=== PATIENT | female | born 1955 | race Caucasian/White ===

== ENCOUNTER 2017-04-18 10:16 | Outpatient (CLI) | payer OTHER ==
[~2017-04-18 10:16] MED LIST: SYNTHROID88 MCG PO
== END 2017-04-18 17:00 | disposition home or self-care (01) ==
LOC: RAD 10:16
DX: C20 Malignant neoplasm of rectum (principal)

== ENCOUNTER 2017-05-06 08:30 | Inpatient (IN) | payer OTHER ==
[~2017-05-06] VITALS: Ht 162.6 cm; Wt 63.5 kg
== END 2017-05-13 14:29 | disposition home or self-care (01) | DRG 330 ==
LOC: SURH 05-10 06:11 → O/R 05-10 06:11 → SURG 05-10 07:15 → SURH 05-11 11:54
PROVIDERS: Colon & Rectal Surgery
PROC: 0DQB4ZZ Repair Ileum, Percutaneous Endoscopic Approach (ICD-10-PCS; principal; 2017-05-10 23:00)
DX: C20 Malignant neoplasm of rectum (principal); K91.89 Other postprocedural complications and disorders of digestive system; K56.0 Paralytic ileus; Z43.2 Encounter for attention to ileostomy; E03.8 Other specified hypothyroidism; D50.8 Other iron deficiency anemias

== ENCOUNTER → 2018-01-20 | Day surgery (SDC) | payer OTHER | END | disposition home or self-care (01) | LOC: ADM 01-18 14:45 → AMB-ENDOS 09:05 | DX: C20 Malignant neoplasm of rectum (principal) ==

== ENCOUNTER 2018-08-18 14:23 | Inpatient (IN) | payer OTHER ==
[~2018-08-18] VITALS: Ht 121.9 cm; Wt 5.0 kg
[2018-08-18] MEDS ORDERED: NEURONTIN300 MG PO (14:59)
--- NOTE | 2018-08-18 14:59 | NUR ---
PT CON HX CA RECTAL, REFIERE SANGRADO RECTAL KERR BRILLANTE CON COAGULOS DESDE HOY EN LA MANANA.
--- NOTE | 2018-08-18 23:17 | NUR ---
SE RECIBE PTE ALERTA Y ORIENTADA X 3 ESFERAS, DEL TURNO ANTERIOR, EN YUNG NIVEL MAS BAJO, LEES DE IDENTIFICACION Y BARANDAS ELEVADAS POR PRECAUCION. SE OBSERVA CON BUEN PATRON RESPIRATORIO Y PIEL TIBIA AL TACTO. PTE CON H/L PATENTE Y JABARI DE EDEMA O ERITEMA. PENDIENTE A RE EVALUACION MEDICA.
--- NOTE | 2018-08-19 07:02 | NUR ---
SE RECIBE PTE ALERTA Y ORIENTADA EN LAS 3 ESFERAS EN CAMA CON BARANDAS ELEVADAS POR SEGURIDAD. BUEN PATRON RESPIRATORIO. H/L AREA JABARI DE EDEMA Y ERITEMA. PENDIENTE RE-EVALUACION MEDICA.SE MANTIENE EN OBSERVACION POR CAMBIOS EN CONDICION MEDICA.
== END 2018-08-23 15:49 | disposition home or self-care (01) | DRG 378 ==
LOC: ER 14:23 → SURH 08-19 09:02 → SURG 08-19 09:02 → SURH 08-19 09:57
PROVIDERS: ADMIT Colon & Rectal Surgery
PROC: 30233N1 Transfusion of Nonautologous Red Blood Cells into Peripheral Vein, Percutaneous Approach (ICD-10-PCS; principal; 2018-08-19)
PROC: BW20ZZZ Computerized Tomography (CT Scan) of Abdomen (ICD-10-PCS; 2018-08-20)
DX: K62.5 Hemorrhage of anus and rectum (principal); C20 Malignant neoplasm of rectum; K52.89 Other specified noninfective gastroenteritis and colitis; D70.3 Neutropenia due to infection; I10 Essential (primary) hypertension; E03.8 Other specified hypothyroidism; D50.8 Other iron deficiency anemias; G62.89 Other specified polyneuropathies; Z92.3 Personal history of irradiation; Z92.21 Personal history of antineoplastic chemotherapy; Z93.2 Ileostomy status

== ENCOUNTER 2019-03-12 11:30 | Inpatient (IN) | payer OTHER ==
[~2019-03-12] VITALS: Ht 162.6 cm; Wt 52.2 kg
[~2019-03-12 11:30] MED LIST changes: +NEURONTIN300 MG PO
[2019-03-12] MEDS ORDERED: ACETAMINOPHEN500 M1 PO (13:18)
[2019-03-15] MEDS ORDERED: OXYC1TAB9 PO (18:56)
[2019-03-15] MEDS ORDERED: INTESTINEX680 M1 PO (18:56)
== END 2019-03-15 19:37 | disposition home or self-care (01) | DRG 330 ==
LOC: SURH 16:39 → O/R 03-13 11:30 → ICU 03-14 11:30 → SURH 03-15 19:37
PROVIDERS: ADMIT Colon & Rectal Surgery
PROC: 0D1L4Z4 Bypass Transverse Colon to Cutaneous, Percutaneous Endoscopic Approach (ICD-10-PCS; principal; 2019-03-12)
DX: C20 Malignant neoplasm of rectum (principal); N82.3 Fistula of vagina to large intestine; K91.31 Postprocedural partial intestinal obstruction; K63.89 Other specified diseases of intestine; E03.8 Other specified hypothyroidism; D50.0 Iron deficiency anemia secondary to blood loss (chronic)

== ENCOUNTER 2019-06-30 15:53 | Inpatient (IN) | payer OTHER ==
[~2019-06-30] VITALS: Ht 160 cm; Wt 51.7 kg
[~2019-06-30 15:53] MED LIST changes: +ACETAMINOPHEN500 M1 PO; +INTESTINEX680 M1 PO; +OXYC1TAB9 PO
[2019-06-30] MEDS ORDERED: NEURONTIN 400 MG (16:35)
[2019-07-02] MEDS ORDERED: LEVO-T112 MCG PO (08:33)
[2019-07-02] MEDS ORDERED: GABAPENTIN600 MG PO (08:33)
[2019-07-09] MEDS ORDERED: LEVOTHYROXINE125 MCG PO (13:27)
[2019-07-09] MEDS ORDERED: INTESTINEX680 M1 PO (13:27)
[2019-07-09] MEDS ORDERED: INTEGRA F CAPS1 EACH PO (13:27)
[2019-07-09] MEDS ORDERED: FLAGYL500MG PO (13:27)
[2019-07-09] MEDS ORDERED: FAMOTIDINE20 MG PO (13:27)
[2019-07-09] MEDS ORDERED: ONDANSETRON ODT4 MG PO (13:27)
[2019-07-09] MEDS ORDERED: NeuRONTin 400MG CAPS PO (13:27)
[2019-07-09] MEDS ORDERED: LEVAQUIN750 MG PO (13:27)
== END 2019-07-09 22:37 | disposition home health service (06) | DRG 982 ==
LOC: ER 15:53 → SURH 07-01 12:36
PROVIDERS: ADMIT Internal Medicine Geriatric Medicine
PROC: BW21ZZZ Computerized Tomography (CT Scan) of Abdomen and Pelvis (ICD-10-PCS; principal; 2019-07-01)
PROC: 0T9430Z Drainage of Left Kidney Pelvis with Drainage Device, Percutaneous Approach (ICD-10-PCS; 2019-07-03)
PROC: 0T9330Z Drainage of Right Kidney Pelvis with Drainage Device, Percutaneous Approach (ICD-10-PCS; 2019-07-03)
PROC: 0T9 Urinary System, Drainage (ICD-10-PCS; 2019-07-03)
PROC: 30233N1 Transfusion of Nonautologous Red Blood Cells into Peripheral Vein, Percutaneous Approach (ICD-10-PCS; 2019-07-04)
DX: C20 Malignant neoplasm of rectum (principal); K94.19 Other complications of enterostomy; C78.7 Secondary malignant neoplasm of liver and intrahepatic bile duct; B37.0 Candidal stomatitis; N13.39 Other hydronephrosis; D63.0 Anemia in neoplastic disease; Y83.8 Other surgical procedures as the cause of abnormal reaction of the patient, or of later complication, without mention of misadventure at the time of the procedure; Y92.89 Other specified places as the place of occurrence of the external cause; I10 Essential (primary) hypertension; E03.9 Hypothyroidism, unspecified; K43.5 Parastomal hernia without obstruction or gangrene; Z53.09 Procedure and treatment not carried out because of other contraindication